=== PATIENT | male | born 1960 | race Caucasian/White ===

== ENCOUNTER 2023-09-21 09:31 | Outpatient (AMB) | payer OTHER, SELFPAY ==
--- NOTE | 2023-09-21 09:37 | MHC.PC.OV ---
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 Note: New patient visit Meter Tester Required: No Allergies No Known Allergies Allergy (Verified 09/21/23 09:38) Medication List - Last Reconciled 09/21/23 by Emma Henry MD amlodipine 10 mg PO DAILY irbesartan-hydrochlorothiazide 300-12.5 mg 1 tab PO DAILY Tobacco use date assessed: 09/21/23 Dental Screening Dental Screen Date: 09/21/23 Did you have a dental visit in the last 12 months?: Yes Did you have a dental problem in the last 6 months where you did not have access to dental care?: No Was dental information given to patient?: Patient has dentist HPI HPI Comments History of Present Illness Details The patient is a 62 year old male with a past medical history of prediabetes, hypertension, presenting to [facility]. CV: on hctz/irbesartan, amlodipine. Has gained a little weight. Denies chest pain, dizziness, vision changes. Prediabetes: Wants to work on weight loss. 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 1. Little interest or pleasure in doing things: not at all 2. Feeling down, depressed, or hopeless: not at all 3. Trouble falling or staying asleep, or sleeping too much: not at all 4. Feeling tired or having little energy: not at all 5. Poor appetite or overeating: not at all 6. Feeling bad about yourself - or that you are a failure or have let yourself or your family down: not at all 7. Trouble concentrating on things, such as reading the newspaper or watching television: not at all 8. Moving or speaking so slowly that other people could have noticed. Or the opposite - being so fidgety or restless that you have been moving around a lot more than usual: not at all 9. Thoughts that you would be better off or of hurting yourself in some way: not at all Total score: 0 Depression Screening Interpretation: Negative (neg) Depression Screening Done: Yes 07468 - PHQ-9 Billing: Yes Source: Developed by Drs. Khurram Llanes, Krysten Monroy, Vijay Oconnell and colleagues, with an educational jeovany from [employer]. Thrive Questionnaire Date Thrive assessed: 09/21/23 I am a: Patient What is your living situation today?: I have a steady place to live Within the past 12 months, did the food you bought not last and you didn't have the money to get more?: Never true Within the past 12 months, did you worry whether your food would run out before you got money to buy more?: Never true Do you have trouble paying for medicines?: No Do you have trouble getting transportation to medical appointments?: No Do you have trouble paying your heating and electricity bill?: No Do you have trouble taking care of your child, family member or friend?: No Do you have trouble with day-to-day activities such as bathing, preparing meals, shopping, managing finances, etc.?: No Are you currently unemployed and looking for a job?: No Are you interested in more education?: No Please select the resources that you would like help with: None Currently or been in a relationship where the following occur: no concerns reported THRIVE Score: 0 AUDIT C Alcohol Use Questionnaire (AUDIT-C) 1. How often do you have a drink containing alcohol?: Never 3. How often do you have six or more drinks on one occasion?: Never Total Score: 0 MIHAELA-7 AMB Questionnaire MIHAELA-7 Date MIHAELA - 7 assessed: 09/21/23 Feeling nervous, anxious, or on edge: 0 = Not at all Not being able to stop or control worryin = Not at all Worrying too much about different things: 0 = Not at all Trouble relaxin = Not at all Being so restless that it is hard to sit still: 0 = Not at all Becoming easily annoyed or irritable: 0 = Not at all Feeling afraid as if something awful might happen: 0 = Not at all Total MIHAELA-7 score (0-4 normal; 5-9 mild; 10-14 moderate; 15-21 severe): 0 Source: Developed by Drs. Khurram Llanes, Krysten Monroy, Vijay Oconnell and colleagues, with an educational jeovany from [employer]. MIHAELA-7 Assessment Billing MIHAELA-7 Assessment Tool: MIHAELA-7 Assessment 54840 Review of Systems Const Details: ROS CONSTITUTIONAL: Denies weight loss, fever and chills. HEENT: Denies changes in vision and hearing. RESPIRATORY: Denies SOB and cough. CV: Denies palpitations and CP GI: Denies abdominal pain, nausea, vomiting and diarrhea. : Denies dysuria and urinary frequency. MSK: Denies new myalgia and joint pain. SKIN: Denies rash and pruritus. NEUROLOGICAL: Denies headache PSYCHIATRIC: Denies recent changes in mood. Physical exam (Primary Care) Vital Signs: Last Vital Signs Temp 98.2 F 09/21/23 09:44 Pulse 90 09/21/23 09:44 Resp 16 09/21/23 09:44 BP 138/64 09/21/23 09:44 Pulse Ox 97 09/21/23 09:44 Oxygen Delivery Method Room Air 09/21/23 09:44 PHYSICAL EXAM: GENERAL: Alert and oriented x 3. NAD EYES: EOMI. Anicteric. HENT: Moist mucous membranes. No scleral icterus. No cervical lymphadenopathy. LUNGS: Clear to auscultation bilaterally. CARDIOVASCULAR: Regular rate and rhythm. No murmur. No JVD. ABDOMEN: Soft, non-tender +bs EXTREMITIES: No edema. Non-tender. SKIN: No rashes or lesions. Warm. NEUROLOGIC: No focal neurological deficits. CN II-XII grossly intact PSYCHIATRIC: Cooperative. Appropriate mood and affect BMI result Body Mass Index 34.7 Tobacco/Smoking Status: Tobacco use Status Tobacco use date assessed 09/21/23 09/21/23 09:49 Patient Tobacco Use Status Never used Tobacco 09/21/23 09:49 e-Cigarette/Vaping Use Never Used 09/21/23 09:49 PHQ-9: PHQ-9 Score PHQ-9: Total score 0 09/21/23 09:55 Depression Screening Interpretation: Negative (neg) Thrive Assessment: Date of Thrive Assessment Date Thrive assessed 09/21/23 09/21/23 09:55 Currently or been in a relationship where the following occur: no concerns reported Assessment and Plan Assessment & Plan (1) Prediabetes: Comment: Efforts toward weight loss. Decrease calories, limit carbohydrate intake Code(s): R73.03 - Prediabetes (2) HTN (hypertension): Comment: Limit salt intake. Efforts toward weight loss. Recommend minimum 30 minutes cardiovascular exercise atleast 5 times weekly Code(s): I10 - Essential (primary) hypertension Qualifiers: Hypertension type: primary hypertension Qualified Code(s): I10 - Essential (primary) hypertension (3) Screening, deficiency anemia, iron: Code(s): Z13.0 - Encounter for screening for diseases of the blood and blood-forming organs and certain disorders involving the immune mechanism (4) Screening for hyperlipidemia: Code(s): Z13.220 - Encounter for screening for lipoid disorders Orders: Orders Complete Blood Count Auto Diff Today I10 - Essential (primary) hypertension, R73.03 - Prediabetes, Z13.0 - Encounter for screening for diseases of the blood and blood-forming organs and certain disorders involving the immune mechanism, Z13.220 - Encounter for screening for lipoid disorders Comprehensive Met. Panel Today I10 - Essential (primary) hypertension, R73.03 - Prediabetes, Z13.0 - Encounter for screening for diseases of the blood and blood-forming organs and certain disorders involving the immune mechanism, Z13.220 - Encounter for screening for lipoid disorders Lipid Panel Today I10 - Essential (primary) hypertension, R73.03 - Prediabetes, Z13.0 - Encounter for screening for diseases of the blood and blood-forming organs and certain disorders involving the immune mechanism, Z13.220 - Encounter for screening for lipoid disorders Prostate Specific Antigen Scr Today I10 - Essential (primary) hypertension, R73.03 - Prediabetes, Z13.0 - Encounter for screening for diseases of the blood and blood-forming organs and certain disorders involving the immune mechanism, Z13.220 - Encounter for screening for lipoid disorders Medications: New amlodipine for refills 10 mg PO DAILY 90 tabs 3RF irbesartan-hydrochlorothiazide 300-12.5 mg for refills 1 tab PO DAILY 90 tabs 0RF Coding Level of Care Code Est Pt Level 4 (75438) Complex EM visit Add On G2211 Diagnoses Prediabetes R73.03 Primary hypertension I10 Hypertension type: primary hypertension Screening, deficiency anemia, iron Z13.0 Screening for hyperlipidemia Z13.220 Additional Codes MIHAELA-7 Assessment Billing - MIHAELA-7 Assessment Tool: MIHAELA-7 Assessment 12490 ([id number])
[2023-09-21 09:44] VITALS: BP 138/64; PULSE 90; RESP 16; TEMP 36.8; O2SAT 97; BMI 34.7
== END 2023-09-21 10:51 | disposition home or self-care (01) ==
PROVIDERS: Visit Provider Internal Medicine
DX: R73.03 Prediabetes (principal); I10 Essential (primary) hypertension; Z13.0 Encounter for screening for diseases of the blood and blood-forming organs and certain disorders involving the immune mechanism; Z13.220 Encounter for screening for lipoid disorders
CPT/HCPCS: 99214; G2211

== ENCOUNTER 2024-01-27 08:47 | Outpatient (AMB) | payer OTHER, SELFPAY ==
--- NOTE | 2024-01-27 08:54 | MHC.OFFWIV ---
Intake Vital Signs 01/27/24 08:59 Height 5 ft 6 in Weight 214 lb BMI 34.5 BP 132/74 Blood Pressure Location Lt brachial Position Sitting Respiration 16 Pulse 93 Pulse Source Pulse Oximeter Temp 97.6 F Temp Source Oral Pulse Oximetry (%) 96 Oxygen Delivery Method Room Air Intake Visit Reasons: est/ posion tano right arm Intake Note: patient was doing yard work on last thursday and has rash on right arm Patient Tobacco Use Status: Never used Tobacco Allergies No Known Allergies Allergy (Verified 01/27/24 09:11) Medication List - Last Reconciled 01/27/24 by JHON Carrillo amlodipine 10 mg PO DAILY irbesartan-hydrochlorothiazide 300-12.5 mg 1 tab PO DAILY HPI HPI Comments History of Present Illness Details 63-year-old male with prediabetes and hypertension here today for chief complaints of rash on right arm Started w/ rash on right arm s/p yardwork on . Skin was itchy. Started to tx w OTC spray which helped w the itch. Now has area on right hip. Denies fever, chills. Exam Right forearm w/ dermatitis w/o secondary infection with secondary excoriations, some linear distribution of the rash to the AC. Right hip not examined, pt reports stripe of the same rash on his arm Plan: Pred taper Edu on reasons to RTO and how to prevent spread. This note is constructed using voice recognition software. While every effort has been made to ensure accuracy in administration physician, still errors may have been included Sometimes, these errors may affect the content or meaning of the given sentence . 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 Medications: New prednisone 5 tabs x 2 days, 4 tabs x 2 days, 3 tabs x 2 days, 2 tabs x 2 days, 1 tab x 2 days and then STOP. 10 mg PO DIRECTED 10 days 30 tabs 0RF Patient Instructions: Advised to take the medication daily with food. If new lesions crop up while on the taper advised to return to the office as we may need to hold the taper and/or extend the taper to prevent recurrence. Advised to cover the areas to prevent spread using something like a Tegaderm. Wash linen to also help prevent spread. Continue to use the [id number] skin scrubs to help protect the rest of your skin. Do your best to avoid contact. Coding Level of Care Code Est Pt Level 3 (95074) Diagnoses Allergic dermatitis due to poison tano L23.7
[2024-01-27 08:59] VITALS: BP 132/74; PULSE 93; RESP 16; TEMP 36.4; O2SAT 96; BMI 34.5
== END 2024-01-27 09:20 | disposition home or self-care (01) ==
PROVIDERS: Visit Provider Nurse Practitioner Family
DX: L23.7 Allergic contact dermatitis due to plants, except food (principal)
CPT/HCPCS: 99213

== ENCOUNTER 2024-03-01 09:43 | Outpatient (AMB) | payer OTHER, SELFPAY ==
--- NOTE | 2024-03-01 09:48 | A.OFFPC_ITS ---
Vital Signs 03/01/24 09:49 Height 5 ft 6 in Weight 214 lb BMI 34.5 BP 124/84 Blood Pressure Location Rt brachial Position Sitting Respiration 14 Pulse 87 Pulse Source Pulse Oximeter Pulse Oximetry (%) 95 Oxygen Delivery Method Room Air Intake Visit Reasons: 6 mth -Blood Presure Intake Note: Six month follow up htn Allergies No Known Allergies Allergy (Verified 03/01/24 09:48) Tobacco use date assessed: 09/21/23 Dental Screening Dental Screen Date: 09/21/23 HPI HPI Comments History of Present Illness Details The patient is a 63 year old male with a past medical history of prediabetes, hypertension, presenting for follow up CV: on hctz/irbesartan, amlodipine. Has gained a little weight. Denies chest pain, dizziness, vision changes. Prediabetes: Wants to work on weight loss. Declines GLP Cologuard-02/15/2022 ROS CONSTITUTIONAL: Denies weight loss, fever and chills. HEENT: Denies changes in vision and hearing. RESPIRATORY: Denies SOB and cough. CV: Denies palpitations and CP GI: Denies abdominal pain, nausea, vomiting and diarrhea. : Denies dysuria and urinary frequency. MSK: Denies new myalgia and joint pain. SKIN: Denies rash and pruritus. NEUROLOGICAL: Denies headache PSYCHIATRIC: Denies recent changes in mood. PHYSICAL EXAM: GENERAL: Alert and oriented x 3. NAD EYES: EOMI. Anicteric. HENT: Moist mucous membranes. No scleral icterus. No cervical lymphadenopathy. LUNGS: Clear to auscultation bilaterally. CARDIOVASCULAR: Regular rate and rhythm. No murmur. No JVD. ABDOMEN: Soft, non-tender +bs EXTREMITIES: No edema. Non-tender. SKIN: No rashes or lesions. Warm. NEUROLOGIC: No focal neurological deficits. CN II-XII grossly intact PSYCHIATRIC: Cooperative. 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 1. Little interest or pleasure in doing things: not at all 2. Feeling down, depressed, or hopeless: not at all 3. Trouble falling or staying asleep, or sleeping too much: not at all 4. Feeling tired or having little energy: not at all 5. Poor appetite or overeating: not at all 6. Feeling bad about yourself - or that you are a failure or have let yourself or your family down: not at all 7. Trouble concentrating on things, such as reading the newspaper or watching television: not at all 8. Moving or speaking so slowly that other people could have noticed. Or the opposite - being so fidgety or restless that you have been moving around a lot more than usual: not at all 9. Thoughts that you would be better off or of hurting yourself in some way: not at all Total score: 0 Depression Screening Interpretation: Negative (neg) Depression Screening Done: Yes 18092 - PHQ-9 Billing: Yes Source: Developed by Drs. Khurram Llanes, Krysten Monroy, Vijay Oconnell and colleagues, with an educational jeovany from [employer]. Thrive Questionnaire Date Thrive assessed: 09/21/23 I am a: Patient What is your living situation today?: I have a steady place to live Within the past 12 months, did the food you bought not last and you didn't have the money to get more?: Never true Within the past 12 months, did you worry whether your food would run out before you got money to buy more?: Never true Do you have trouble paying for medicines?: No Do you have trouble getting transportation to medical appointments?: No Do you have trouble paying your heating and electricity bill?: No Do you have trouble taking care of your child, family member or friend?: No Do you have trouble with day-to-day activities such as bathing, preparing meals, shopping, managing finances, etc.?: No Are you currently unemployed and looking for a job?: No Are you interested in more education?: No Please select the resources that you would like help with: None Currently or been in a relationship where the following occur: No concerns reported THRIVE Score: 0 AUDIT C Alcohol Use Questionnaire (AUDIT-C) 1. How often do you have a drink containing alcohol?: Never Total Score: 0 MIHAELA-7 AMB Questionnaire MIHAELA-7 Date MIHAELA - 7 assessed: 03/01/24 Feeling nervous, anxious, or on edge: 0 = Not at all Not being able to stop or control worryin = Not at all Worrying too much about different things: 0 = Not at all Trouble relaxin = Not at all Being so restless that it is hard to sit still: 0 = Not at all Feeling afraid as if something awful might happen: 0 = Not at all Source: Developed by Drs. Khurram Llanes, Krysten Monroy, Vijay Oconnell and colleagues, with an educational jeovany from [employer]. MIHAELA-7 Assessment Billing MIHAELA-7 Assessment Tool: MIHAELA-7 Assessment 22448 Physical exam (Primary Care) Vital Signs: Last Vital Signs Pulse 87 03/01/24 09:49 Resp 14 03/01/24 09:49 BP 124/84 03/01/24 09:49 Pulse Ox 95 03/01/24 09:49 Oxygen Delivery Method Room Air 03/01/24 09:49 BMI result Body Mass Index 34.5 Tobacco/Smoking Status: Tobacco use Status Tobacco use date assessed 09/21/23 03/01/24 09:49 Patient Tobacco Use Status Never used Tobacco 03/01/24 09:49 e-Cigarette/Vaping Use Never Used 03/01/24 09:49 PHQ-9: PHQ-9 Score PHQ-9: Total score 0 03/01/24 09:58 Depression Screening Interpretation: Negative (neg) Thrive Assessment: Date of Thrive Assessment Date Thrive assessed 09/21/23 03/01/24 09:49 Currently or been in a relationship where the following occur: No concerns reported Coding Level of Care Code Est Pt Level 4 (72910) Diagnoses Prediabetes R73.03 Primary hypertension I10 Hypertension type: primary hypertension Additional Codes MIHAELA-7 Assessment Billing - MIHAELA-7 Assessment Tool: MIHAELA-7 Assessment 54472 ([id number]) Assessment & Plan Assessment & Plan (1) Prediabetes: Code(s): R73.03 - Prediabetes Category: Medical Plan: Efforts toward weight loss. Decrease calories, limit carbohydrate intake (2) HTN (hypertension): Comment: Limit salt intake. Efforts toward weight loss. Recommend minimum 30 minutes cardiovascular exercise atleast 5 times weekly Code(s): I10 - Essential (primary) hypertension Category: Medical Qualifiers: Hypertension type: primary hypertension Qualified Code(s): I10 - Essential (primary) hypertension Plan: Well controlled on current medicationsLimit salt intake. Efforts toward weight loss. Recommend minimum 30 minutes cardiovascular exercise atleast 5 times weekly Orders: Orders Prostate Specific Antigen Today I10 - Essential (primary) hypertension, R73.03 - Prediabetes, Z13.220 - Encounter for screening for lipoid disorders Complete Blood Count Auto Diff Today I10 - Essential (primary) hypertension, R73.03 - Prediabetes, Z13.220 - Encounter for screening for lipoid disorders Comprehensive Met. Panel Today I10 - Essential (primary) hypertension, R73.03 - Prediabetes, Z13.220 - Encounter for screening for lipoid disorders Lipid Panel Today I10 - Essential (primary) hypertension, R73.03 - Prediabetes, Z13.220 - Encounter for screening for lipoid disorders Hemoglobin A1c Today I10 - Essential (primary) hypertension, R73.03 - Prediabetes, Z13.220 - Encounter for screening for lipoid disorders
[2024-03-01 09:49] VITALS: BP 124/84; PULSE 87; RESP 14; O2SAT 95; BMI 34.5
== END 2024-03-01 10:29 | disposition home or self-care (01) ==
PROVIDERS: PCP Internal Medicine; Visit Provider Internal Medicine
DX: R73.03 Prediabetes (principal); I10 Essential (primary) hypertension

== ENCOUNTER → 2024-03-01 09:43 | Outpatient (BNVA) | payer OTHER, SELFPAY | PROVIDERS: Visit Provider Internal Medicine | DX: R73.03 Prediabetes (principal); I10 Essential (primary) hypertension | CPT/HCPCS: 96127 ==

== ENCOUNTER 2024-08-30 08:55 | Outpatient (AMB) | payer OTHER, SELFPAY ==
--- NOTE | 2024-08-30 09:12 | A.OFFPC_ITS ---
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 136/72. Denies chest pain, dizziness, vision changes. Prediabetes: Wants to work on weight loss. [facility]ines [facility] ROS CONSTITUTIONAL: Denies weight loss, fever and chills. HEENT: Denies changes in vision and hearing. RESPIRATORY: Denies SOB and cough. CV: Denies palpitations and CP GI: Denies abdominal pain, nausea, vomiting and diarrhea. : Denies dysuria and urinary frequency. MSK: Denies new myalgia and joint pain. SKIN: Denies rash and pruritus. NEUROLOGICAL: Denies headache PSYCHIATRIC: Denies recent changes in mood. PHYSICAL EXAM: GENERAL: Alert and oriented x 3. NAD EYES: EOMI. Anicteric. HENT: Moist mucous membranes. No scleral icterus. No cervical lymphadenopathy. LUNGS: Clear to auscultation bilaterally. CARDIOVASCULAR: Regular rate and rhythm. No murmur. No JVD. ABDOMEN: Soft, non-tender +bs EXTREMITIES: No edema. Non-tender. SKIN: No rashes or lesions. Warm. NEUROLOGIC: No focal neurological deficits. CN II-XII grossly intact PSYCHIATRIC: Cooperative. 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 Current occupational exposures/hazards: No Cognitive needs: No Hearing needs: Yes (partial hearing loss ) Vision needs: No Questionnaire Thrive Questionnaire Date Thrive assessed: 03/01/24 I am a: Patient What is your living situation today?: I have a steady place to live Within the past 12 months, did the food you bought not last and you didn't have the money to get more?: Never true Within the past 12 months, did you worry whether your food would run out before you got money to buy more?: Never true Do you have trouble paying for medicines?: No Do you have trouble getting transportation to medical appointments?: No Do you have trouble paying your heating and electricity bill?: No Do you have trouble taking care of your child, family member or friend?: No Do you have trouble with day-to-day activities such as bathing, preparing meals, shopping, managing finances, etc.?: No Are you currently unemployed and looking for a job?: No Are you interested in more education?: No Please select the resources that you would like help with: None Currently or been in a relationship where the following occur: No concerns reported THRIVE Score: 0 MIHAELA-7 AMB Questionnaire MIHAELA-7 Date MIHAELA - 7 assessed: 03/01/24 Source: Developed by Drs. Khurram Llanes, Krysten Monroy, Vijay Oconnell and colleagues, with an educational jeovany from [employer]. Physical exam (Primary Care) Vital Signs: Last Vital Signs Pulse 94 08/30/24 09:14 Resp 16 08/30/24 09:14 BP 140/76 H 08/30/24 09:14 Pulse Ox 97 08/30/24 09:14 Oxygen Delivery Method Room Air 08/30/24 09:14 BMI result Body Mass Index 35.0 Tobacco/Smoking Status: Tobacco use Status Tobacco use date assessed 08/30/24 08/30/24 09:17 Patient Tobacco Use Status Never used Tobacco 08/30/24 09:17 e-Cigarette/Vaping Use Never Used 08/30/24 09:17 Thrive Assessment: Date of Thrive Assessment Date Thrive assessed 03/01/24 08/30/24 09:17 Currently or been in a relationship where the following occur: No concerns reported Coding Level of Care Code Est Pt Level 4 (20765) Diagnoses Prediabetes R73.03 Primary hypertension I10 Hypertension type: primary hypertension Assessment & Plan Assessment & Plan (1) Prediabetes: Code(s): R73.03 - Prediabetes Category: Medical (2) HTN (hypertension): Comment: Limit salt intake. Efforts toward weight loss. Recommend minimum 30 minutes cardiovascular exercise atleast 5 times weekly Code(s): I10 - Essential (primary) hypertension Category: Medical Qualifiers: Hypertension type: primary hypertension Qualified Code(s): I10 - Essential (primary) hypertension Plan Hypertension-Limit salt. Increase exercise. Efforts toward weight loss. Prediabetes-limit carbohydrates. Efforts toward weight loss Orders: Orders Complete Blood Count Auto Diff 6 Months I10 - Essential (primary) hypertension, R73.03 - Prediabetes, Z13.0 - Encounter for screening for diseases of the blood and blood-forming organs and certain disorders involving the immune mechanism, Z13.220 - Encounter for screening for lipoid disorders Comprehensive Met. Panel 6 Months I10 - Essential (primary) hypertension, R73.03 - Prediabetes, Z13.0 - Encounter for screening for diseases of the blood and blood-forming organs and certain disorders involving the immune mechanism, Z13.220 - Encounter for screening for lipoid disorders Prostate Specific Antigen 6 Months I10 - Essential (primary) hypertension, R73.03 - Prediabetes, Z13.0 - Encounter for screening for diseases of the blood and blood-forming organs and certain disorders involving the immune mechanism, Z13.220 - Encounter for screening for lipoid disorders Lipid Panel 6 Months I10 - Essential (primary) hypertension, R73.03 - Prediabetes, Z13.0 - Encounter for screening for diseases of the blood and blood-forming organs and certain disorders involving the immune mechanism, Z13.220 - Encounter for screening for lipoid disorders Hemoglobin A1c 6 Months I10 - Essential (primary) hypertension, R73.03 - Prediabetes, Z13.0 - Encounter for screening for diseases of the blood and blood-forming organs and certain disorders involving the immune mechanism, Z13.220 - Encounter for screening for lipoid disorders Medications: Refilled irbesartan-hydrochlorothiazide 300-12.5 mg for refills 1 tab PO DAILY 90 tabs 3RF
[2024-08-30 09:14] VITALS: BP 140/76; PULSE 94; RESP 16; O2SAT 97; BMI 35.0
== END 2024-08-30 11:07 | disposition home or self-care (01) ==
LOC: HO.HMCFM 08:55
PROVIDERS: PCP Internal Medicine; Visit Provider Internal Medicine
DX: R73.03 Prediabetes (principal); I10 Essential (primary) hypertension

== ENCOUNTER → 2024-08-30 08:55 | Outpatient (BNVA) | payer OTHER, SELFPAY | PROVIDERS: PCP Internal Medicine; Visit Provider Internal Medicine ==

== ENCOUNTER 2024-11-01 08:11 | Outpatient (AMB) | payer OTHER, SELFPAY ==
--- NOTE | 2024-11-01 08:21 | A.OFFPC_ITS ---
Vital Signs 11/01/24 08:26 Height 5 ft 6 in Weight 219 lb 8 oz BMI 35.4 BP 132/74 Blood Pressure Location Rt brachial Position Sitting Respiration 16 Pulse 95 Pulse Source Pulse Oximeter Temp 98.6 F Temp Source Temporal Artery Scan Pulse Oximetry (%) 96 Oxygen Delivery Method Room Air Intake Visit Reasons: CPE Intake Note: Mario presents in the office today for his annual physical. Allergies No Known Allergies Allergy (Verified 11/01/24 08:25) Tobacco use date assessed: 11/01/24 Dental Screening Dental Screen Date: 11/01/24 Did you have a dental visit in the last 12 months?: Yes Did you have a dental problem in the last 6 months where you did not have access to dental care?: No Was dental information given to patient?: Patient has dentist HPI HPI Comments History of Present Illness Details The patient is a 63 year old male with a past medical history of prediabetes, hypertension, presenting for annual exam CV: on hctz/irbesartan, amlodipine. 132/74. Denies chest pain, dizziness, vision changes. Prediabetes: A1C ordered. Has gained a few pounds Cologuard-02/15/2022. Ordered for january Recommend shingles Patient and planning to move to [place] so declines referral to dermatology for multiple nevi ROS CONSTITUTIONAL: Denies weight loss, fever and chills. HEENT: Denies changes in vision and hearing. RESPIRATORY: Denies SOB and cough. CV: Denies palpitations and CP GI: Denies abdominal pain, nausea, vomiting and diarrhea. : Denies dysuria and urinary frequency. MSK: Denies new myalgia and joint pain. SKIN: Denies rash and pruritus. NEUROLOGICAL: Denies headache PSYCHIATRIC: Denies recent changes in mood. PHYSICAL EXAM: GENERAL: Alert and oriented x 3. NAD EYES: EOMI. Anicteric. HENT: Moist mucous membranes. No scleral icterus. No cervical lymphadenopathy. LUNGS: Clear to auscultation bilaterally. CARDIOVASCULAR: Regular rate and rhythm. No murmur. No JVD. ABDOMEN: Soft, non-tender +bs EXTREMITIES: No edema. Non-tender. SKIN: Multiple atypical nevi, AKs, SKs NEUROLOGIC: No focal neurological deficits. CN II-XII grossly intact PSYCHIATRIC: Cooperative. 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 96348 - PHQ-9 Billing: Patient declined-do not bill Source: Developed by Drs. Khurram Llanes, Krysten Monroy, Vijay Oconnell and colleagues, with an educational jeovany from [employer]. Thrive Questionnaire Date Thrive assessed: 11/01/24 I am a: Patient What is your living situation today?: I have a steady place to live Within the past 12 months, did the food you bought not last and you didn't have the money to get more?: Never true Within the past 12 months, did you worry whether your food would run out before you got money to buy more?: Never true Do you have trouble paying for medicines?: No Do you have trouble getting transportation to medical appointments?: No THRIVE Score: 0 MIHAELA-7 AMB Questionnaire MIHAELA-7 Date MIHAELA - 7 assessed: 03/01/24 Source: Developed by Drs. Khurram Llanes, Krysten Monroy, Vijay Oconnell and colleagues, with an educational jeovany from [employer]. Physical exam (Primary Care) Vital Signs: Last Vital Signs Temp 98.6 F 11/01/24 08:26 Pulse 95 11/01/24 08:26 Resp 16 11/01/24 08:26 BP 132/74 11/01/24 08:26 Pulse Ox 96 11/01/24 08:26 Oxygen Delivery Method Room Air 11/01/24 08:26 BMI result Body Mass Index 35.4 Tobacco/Smoking Status: Tobacco use Status Tobacco use date assessed 11/01/24 11/01/24 08:23 Patient Tobacco Use Status Never used Tobacco 11/01/24 08:26 e-Cigarette/Vaping Use Never Used 11/01/24 08:26 Thrive Assessment: Date of Thrive Assessment Date Thrive assessed 11/01/24 11/01/24 08:23 Coding Level of Care Code Est Pt Prev Care 40-64y(37582) Diagnoses Physical exam Z00.00 Prediabetes R73.03 Primary hypertension I10 Hypertension type: primary hypertension Assessment & Plan Assessment & Plan (1) Physical exam: Code(s): Z00.00 - Encounter for general adult medical examination without abnormal findings Category: Medical (2) Prediabetes: Code(s): R73.03 - Prediabetes Category: Medical (3) HTN (hypertension): Comment: Limit salt intake. Efforts toward weight loss. Recommend minimum 30 minutes cardiovascular exercise atleast 5 times weekly Code(s): I10 - Essential (primary) hypertension Category: Medical Qualifiers: Hypertension type: primary hypertension Qualified Code(s): I10 - Essential (primary) hypertension Plan 63 yo for CPE HTN controlled on current medications Prediabetes-Increase physical activity. Decrease caloric intake Labs ordered Colonoscopy declined. cologuard ordered for sept Declines dermatology referral Orders: Orders Hemoglobin A1c Today I10 - Essential (primary) hypertension, R73.03 - Prediabetes, Z00.00 - Encounter for general adult medical examination without abnormal findings ABO RH Type Today Z01.83 - Encounter for blood typing Comprehensive Met. Panel Today I10 - Essential (primary) hypertension, R73.03 - Prediabetes, Z00.00 - Encounter for general adult medical examination without abnormal findings Complete Blood Count Auto Diff Today I10 - Essential (primary) hypertension, R73.03 - Prediabetes, Z00.00 - Encounter for general adult medical examination without abnormal findings Lipid Panel Today I10 - Essential (primary) hypertension, R73.03 - Prediabetes, Z00.00 - Encounter for general adult medical examination without abnormal findings Prostate Specific Antigen Today Z12.5 - Encounter for screening for malignant neoplasm of prostate Referrals Cologuard Test Z12.11 - Encounter for screening for malignant neoplasm of colon, Z12.12 - Encounter for screening for malignant neoplasm of rectum
[2024-11-01 08:26] VITALS: BP 132/74; PULSE 95; RESP 16; TEMP 37; O2SAT 96; BMI 35.4
== END 2024-11-01 09:06 | disposition home or self-care (01) ==
LOC: HO.HMCFM 08:12
PROVIDERS: PCP Internal Medicine; Visit Provider Internal Medicine
DX: Z00.00 Encounter for general adult medical examination without abnormal findings (principal); R73.03 Prediabetes; I10 Essential (primary) hypertension

== ENCOUNTER → 2024-11-01 08:11 | Outpatient (BNVA) | payer OTHER, SELFPAY | PROVIDERS: PCP Internal Medicine; Visit Provider Internal Medicine ==

== ENCOUNTER 2025-05-08 08:35 | Outpatient (REF) | payer OTHER, SELFPAY ==
[2025-05-08 11:06] LABS: MANUAL DIFF FLAG NO
[2025-05-08 11:18] LABS: Hematocrit 45.4 % (42.0-52.0); Hemoglobin 15.3 g/dl (14.0-18.0); Imm Gran Abs Auto 0.06 X10*3/uL (0.00-0.03); Imm Gran Pct Auto 0.8 % (0.0-0.4); Lymphocytes Absolute Auto 2.3 X10*3/uL (1.2-4.9); Mean Corpuscular HGB Conc 33.7 g/dl (31.0-36.0); Mean Corpuscular Hemoglobin 28.7 pg (27.0-33.0); Mean Corpuscular Volume 85.2 fL (80.0-98.0); NRBC Abs Auto 0.000 X10*3/uL (0.0-0.012); NRBC Pct Auto 0.0 /100WBC (0.0-0.2); Platelet Count 268 X10*3/uL (160-400); Red Blood Count 5.33 X10*6/uL (4.60-5.80); White Blood Count 7.6 X10*3/uL (4.8-10.8)
[2025-05-08 11:38] LABS: Alanine Aminotransferase 43 U/L (0-40); Albumin Level 4.4 g/dL (3.5-5.0); Alkaline Phosphatase 86 U/L (39-117); Anion Gap 9 (12-20); Aspartate Amino Transferase 31 U/L (5-37); Blood Urea Nitrogen 13 mg/dL (9-16); Calcium 9.6 mg/dL (8.4-10.2); Carbon Dioxide 31 mmol/L (22-29); Chloride 105 mmol/L (96-108); Cholesterol 198 mg/dL (<200); Estimated Glomerular Filt Rate > 60; HDL Cholesterol 42 mg/dL (>40); Potassium 3.7 mmol/L (3.3-5.1); Sodium 141 mmol/L (135-145); Total Protein 7.1 g/dL (6.5-8.0); Triglycerides 191 mg/dL (<150)
[2025-05-08 11:49] LABS: Prostate Specific Antigen 0.64 ng/mL (<0.05-4.0)
== END 2025-05-08 08:36 | disposition home or self-care (01) ==
LOC: HO.WFDLDS 08:35
PROVIDERS: Visit Provider Internal Medicine
DX: Z00.00 Encounter for general adult medical examination without abnormal findings (principal); Z13.220 Encounter for screening for lipoid disorders; Z13.0 Encounter for screening for diseases of the blood and blood-forming organs and certain disorders involving the immune mechanism; Z12.5 Encounter for screening for malignant neoplasm of prostate; Z23 Encounter for immunization; R73.03 Prediabetes; I10 Essential (primary) hypertension; Z01.83 Encounter for blood typing
CPT/HCPCS: 36415; 80053; 80061; 83036; 84153; 85025; 90471; 90656

== ENCOUNTER 2025-05-08 08:46 | Outpatient (AMB) | payer OTHER, SELFPAY ==
[2025-05-08 08:54] VITALS: BP 136/84; PULSE 95; RESP 14; O2SAT 97; BMI 36.0
--- NOTE | 2025-05-08 08:54 | A.OFFPC_ITS ---
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 136/84. Denies chest pain, dizziness, vision changes. Prediabetes: Monitoring A1C. Has gained a few pounds since last visit [facility] Seeing dermatology in [facility] CONSTITUTIONAL: Denies weight loss, fever and chills. HEENT: Denies changes in vision and hearing. RESPIRATORY: Denies SOB and cough. CV: Denies palpitations and CP GI: Denies abdominal pain, nausea, vomiting and diarrhea. : Denies dysuria and urinary frequency. MSK: Denies new myalgia and joint pain. SKIN: Denies rash and pruritus. NEUROLOGICAL: Denies headache PSYCHIATRIC: Denies recent changes in mood. PHYSICAL EXAM: GENERAL: Alert and oriented x 3. NAD EYES: EOMI. Anicteric. HENT: Moist mucous membranes. No scleral icterus. No cervical lymphadenopathy. LUNGS: Clear to auscultation bilaterally. CARDIOVASCULAR: Regular rate and rhythm. No murmur. No JVD. ABDOMEN: Soft, non-tender +bs EXTREMITIES: No edema. Non-tender. SKIN: Multiple atypical nevi, AKs, SKs NEUROLOGIC: No focal neurological deficits. CN II-XII grossly intact PSYCHIATRIC: Cooperative. 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 93166 - PHQ-9 Billing: Patient declined-do not bill Source: Developed by Drs. Khurram Llanes, Krysten Monroy, Vijay Oconnell and colleagues, with an educational jeovany from [employer]. Thrive Questionnaire Date Thrive assessed: 11/01/24 I am a: Patient What is your living situation today?: I have a steady place to live Within the past 12 months, did the food you bought not last and you didn't have the money to get more?: Never true Within the past 12 months, did you worry whether your food would run out before you got money to buy more?: Never true Do you have trouble paying for medicines?: No Do you have trouble getting transportation to medical appointments?: No THRIVE Score: 0 AUDIT C Alcohol Use Questionnaire (AUDIT-C) 1. How often do you have a drink containing alcohol?: Never 3. How often do you have six or more drinks on one occasion?: Never Total Score: 0 MIHAELA-7 AMB Questionnaire MIHAELA-7 Date MIHAELA - 7 assessed: 03/01/24 Source: Developed by Drs. Khurram Llanes, Krysten Monroy, Vijay Oconnell and colleagues, with an educational jeovany from [employer]. Physical exam (Primary Care) Vital Signs: Last Vital Signs Pulse 95 05/08/25 08:54 Resp 14 05/08/25 08:54 BP 136/84 05/08/25 08:54 Pulse Ox 97 05/08/25 08:54 Oxygen Delivery Method Room Air 05/08/25 08:54 BMI result Body Mass Index 36.0 Tobacco/Smoking Status: Tobacco use Status Tobacco use date assessed 05/08/25 05/08/25 08:58 Patient Tobacco Use Status Never used Tobacco 05/08/25 08:58 e-Cigarette/Vaping Use Never Used 05/08/25 08:58 Thrive Assessment: Date of Thrive Assessment Date Thrive assessed 11/01/24 05/08/25 08:58 Office Procedures Flu Questionnaire Does the patient have a severe egg allergy?: No Does the patient have severe life threatening allergies?: No Does the patient have a fever or illness today?: No Has the patient ever had Guillain-[place] Syndrome?: No Has the patient ever had any past reaction to a flu shot?: No Immunizations Fluarix [id number] (PF) 45 mcg (15 mcg x 3)/0.5 mL IM syringe Performing Provider: Emma Henry MD Performing Location: [facility] [place] Family Medicine Administered by: Lorna Apple CMA on 05/08/25 10:15 Dose Route Admin Location Dispensed Lot Number Expiration Date NDC [employer] 0.5 mL IM Right Deltoid 0.5 mL [id number] 11/21/25 [id number] [employer] VIS Given Date VIS Provided VIS Publication Date 05/08/25 Single Vaccine 24 Eligibility Eligibility Date Funding Source Not [facility] Eligible 05/08/25 Private Coding Level of Care Code Est Pt Level 4 (76012) Diagnoses Primary hypertension I10 Hypertension type: primary hypertension Prediabetes R73.03 Assessment & Plan Assessment & Plan (1) HTN (hypertension): Comment: Limit salt intake. Efforts toward weight loss. Recommend minimum 30 minutes cardiovascular exercise atleast 5 times weekly Code(s): I10 - Essential (primary) hypertension Category: Medical Qualifiers: Hypertension type: primary hypertension Qualified Code(s): I10 - Essential (primary) hypertension (2) Prediabetes: Code(s): R73.03 - Prediabetes Category: Medical Plan Prediabetes-continued efforts weight loss. Decrease carbs/glucose Hypertension-adequately controlled on meds. Decrease salt. Flu shot today Orders: Orders Influenza [id number] Immunization 05/08/25 Z23 - Encounter for immunization
== END 2025-05-08 09:34 | disposition home or self-care (01) ==
LOC: HO.HMCFM 08:47
PROVIDERS: PCP Internal Medicine; Visit Provider Internal Medicine
DX: I10 Essential (primary) hypertension (principal); R73.03 Prediabetes